=== PATIENT | female | born 1985 | race Caucasian/White ===

== ENCOUNTER 2019-05-25 08:32 | Emergency (ER) | payer MEDICAID ==
[~2019-05-25] VITALS: Ht 160 cm; Wt 75.4 kg
[~2019-05-25 08:32] MED LIST: DOCU-144 PO; IBUP-1542 PO; ONDA4TAB14 PO; POLY17PO6 PO
[2019-05-25 08:38] VITALS: Ht 160 cm; Wt 75.4 kg
[2019-05-25] MEDS ORDERED: ONDANSETRON 4 MG INJ IV STA (09:04)
[2019-05-25] MEDS ORDERED: morphine 4 MG/ML VIAL IV STA (09:04)
[2019-05-25 10:50] VITALS: BP 107/70; PULSE 61; RESP 16
== END 2019-05-25 10:50 | disposition home or self-care (01) ==
LOC: E/R 08:32
DX: R10.9 Unspecified abdominal pain (principal)
CPT/HCPCS: 36415; 80053; 81003; 81025; 83690; 85025; 96374; 96375; J2270; J2405; Z7502; Z7610